=== PATIENT | female | born 1990 | race Caucasian/White ===

== ENCOUNTER 2018-07-04 12:12 | Outpatient (CLI) | payer OTHER | END 2018-07-04 12:13 | disposition home or self-care (01) | LOC: LAB 12:12 | PROVIDERS: ATTEND Internal Medicine | DX: D80.9 Immunodeficiency with predominantly antibody defects, unspecified (principal); Z28.3 Underimmunization status | CPT/HCPCS: 36415; 86735; 86762; 86765 ==